=== PATIENT | female | born 1975 | race Caucasian/White ===

== ENCOUNTER 2018-09-25 18:05 | Emergency (ER) | payer OTHER, SELFPAY ==
--- NOTE | 2018-09-25 18:15 | ED.FEMALEGU ---
HPI - Female Genitourinary <Merle Sweeney PA-C - Last Filed: 09/25/18 21:42> General Chief complaint: Fever Stated complaint: HAD SURGERY TWO WEEKS AGO HAS FEVER PAIN Time Seen by Provider: 09/25/18 18:08 Source: patient Mode of arrival: ambulatory Limitations: no limitations History of Present Illness HPI Narrative: This 43-year-old female who had a laparoscopic vaginal hysterectomy 2 weeks ago for adenomyosis comes in due to worse abdominal/pelvic pain over the last couple of days as well as feeling fatigued. She states that on Monday, she started feeling some generalized weakness and fatigue and having chills as well as some nausea without vomiting. She has been able to keep up on her p.o. intake. She states that since surgery, she feels pain that is deep, behind her bladder, worse if her bladder or bowels are full. She states that now, that pain has become more excruciating. She states that today, she developed a fever up to 100.7 at home and her surgeon advised her to ED if fever greater than 100.5. She states the pain has not worsened in the last day or 2 but is worse in the last few days and was the week prior. She denies any dysuria or hematuria. She denies any diarrhea or blood in the stools. She denies any known recent exposures upper respiratory symptoms such as cough or cold symptoms, chest pain or dyspnea. She denies any new rash or other new complaints. she states that the surgeon thought she clipped her left ureter during surgery however she had an ultrasound done on Monday and it was functioning normally. Related Data Allergies Allergy/AdvReac Type Severity Reaction Status Date / Time Penicillins Allergy Verified 09/25/18 18:18 Review of Systems <Merle Sweeney PA-C - Last Filed: 09/25/18 21:42> Review of Systems ROS Unobtainable: All systems reviewed & are unremarkable except as noted in HPI and below PFSH <Merle Sweeney PA-C - Last Filed: 09/25/18 21:42> Medical History (Updated 09/25/18 @ 20:52 by Merle Sweeney PA-C) Adenomyosis (Resolved) History of ovarian cyst (Resolved) Surgical History (Updated 09/25/18 @ 18:36 by Merle Sweeney PA-C) S/P section (Resolved) S/P laparoscopic hysterectomy (Resolved) Social History (Updated 09/25/18 @ 18:36 by Merle Sweeney PA-C) Smoking Status: Never smoker Social History (Updated 09/25/18 @ 18:36 by Merle Sweeney PA-C) Smoking Status: Never smoker Exam <Merle Sweeney PA-C - Last Filed: 09/25/18 21:42> Narrative Exam Narrative: GENERAL APPEARANCE: Patient sitting comfortably, in no distress. HEENT: PERRL, EOMI, no scleral icterus, normal oropharynx NECK: Supple LUNGS: Clear to auscultation bilaterally. HEART: Rate and rhythm regular, normal S1 and S2, no S3 or S4. ABDOMEN: Soft, nondistended, bowel sounds present x 4 quadrants, no masses palpable, no hepatosplenomegaly. moderate midline lower quadrant and right lower quadrant tenderness to palpation without guarding or rebound. no left lower quadrant tenderness, no CVAT EXTREMITIES: No edema, no cyanosis DERMATOLOGIC: No jaundice or exanthem NEUROLOGIC: Alert and oriented with normal speech and coordination Initial Vital Signs Initial Vital Signs: Vital Signs Temperature 98.7 F 09/25/18 18:18 Pulse Rate 102 H 09/25/18 18:18 Respiratory Rate 14 09/25/18 18:18 Blood Pressure 100/61 09/25/18 18:18 Pulse Oximetry 100 09/25/18 18:18 <Alessandro Wilks DO - Last Filed: 09/26/18 02:33> Initial Vital Signs Initial Vital Signs: Vital Signs Temperature 98.7 F 09/25/18 18:18 Pulse Rate 102 H 09/25/18 18:18 Respiratory Rate 14 09/25/18 18:18 Blood Pressure 100/61 09/25/18 18:18 Pulse Oximetry 100 09/25/18 18:18 Course <Merle Sweeney PA-C - Last Filed: 09/25/18 21:42> Additional Information: Dr. Yung phoned regarding findings of vaginal cuff abscess. I have spoken with Dr. Rivera from [facility] who performed her surgery and would like to have patient transferred to [facility]. Patient is stable and her is here with her. She is able to go by private vehicle. I have spoken with Dr. Song Norris from [facility] ED who accepts patient for transfer and has coordinated with Dr. Rivera. Orders Ordered: ED Orders 09/25/18 18:30 CT abdomen pelvis w con Stat 09/25/18 18:40 Complete Blood Count AUTO DIFF Stat Comprehensive Metabolic Panel Stat Lactate (Lactic Acid) Stat Lipase Stat Partial Thromboplastin Time Stat Prothrombin Time INR Stat 09/25/18 19:00 Urine Microscopic Stat Discontinued Medications Sodium Chloride (Normal Saline 0.9%) 1,000 mls @ 1,000 mls/hr IV BOLUS ONE Stop: 09/25/18 19:29 Last Infusion: 09/25/18 20:28 Dose: 0 mls/hr Infusion: 09/25/18 19:42 Dose: 1,000 mls/hr Infusion: 09/25/18 19:26 Dose: 0 mls/hr Admin: 09/25/18 18:56 Dose: 1,000 mls/hr Ketorolac Tromethamine (Toradol) 30 mg IV NOW ONE Stop: 09/25/18 18:31 Last Admin: 09/25/18 18:56 Dose: 30 mg Oxycodone/Acetaminophen (Percocet 5/325) 1 tab PO NOW ONE Stop: 09/25/18 19:54 Last Admin: 09/25/18 19:56 Dose: 1 tab Vital Signs - 8 hr 09/25/18 19:47 09/25/18 20:30 Pulse Rate 80 80 Respiratory Rate 15 Blood Pressure [Left Arm] 100/54 L 113/54 L Pulse Oximetry 100 100 <Alessandro Wilks DO - Last Filed: 09/26/18 02:33> Orders Ordered: ED Orders 09/25/18 18:30 CT abdomen pelvis w con Stat 09/25/18 18:40 Complete Blood Count AUTO DIFF Stat Comprehensive Metabolic Panel Stat Lactate (Lactic Acid) Stat Lipase Stat Partial Thromboplastin Time Stat Prothrombin Time INR Stat 09/25/18 19:00 Urine Microscopic Stat Discontinued Medications Sodium Chloride (Normal Saline 0.9%) 1,000 mls @ 1,000 mls/hr IV BOLUS ONE Stop: 09/25/18 19:29 Last Infusion: 09/25/18 20:28 Dose: 0 mls/hr Infusion: 09/25/18 19:42 Dose: 1,000 mls/hr Infusion: 09/25/18 19:26 Dose: 0 mls/hr Admin: 09/25/18 18:56 Dose: 1,000 mls/hr Ketorolac Tromethamine (Toradol) 30 mg IV NOW ONE Stop: 09/25/18 18:31 Last Admin: 09/25/18 18:56 Dose: 30 mg Oxycodone/Acetaminophen (Percocet 5/325) 1 tab PO NOW ONE Stop: 09/25/18 19:54 Last Admin: 09/25/18 19:56 Dose: 1 tab Vital Signs - 8 hr 09/25/18 19:47 09/25/18 20:30 Pulse Rate 80 80 Respiratory Rate 15 Blood Pressure [Left Arm] 100/54 L 113/54 L Pulse Oximetry 100 100 MDM - Female Genitourinary <Merle Sweeney PA-C - Last Filed: 09/25/18 21:42> Lab Data Attestation: I reviewed the patient's lab results. Result diagrams: 09/25/18 18:40 09/25/18 18:40 Lab Results 09/25/18 09/25/18 09/25/18 Range/Units 14:25 18:40 18:40 WBC 8.6 (4.5-11.0) X10^3/uL RBC 3.63 L (4.0-5.2) X10^6/uL Hgb 10.0 L (12.0-16.0) g/dL Hct 30.0 L (36-46) % MCV 82.6 (80-100) fL MCH 27.5 (26-34) PG MCHC 33.2 (30-36) % RDW 14.1 (11.6-14.8) % Plt Count 80 L (150-400) X10^3/uL Neut % (Auto) 82.0 H (50-75) % Lymph % (Auto) 11.2 L (25-40) % [place] % (Auto) 5.5 (3-14) % Eos % (Auto) 1.0 L (2-4) % Baso % (Auto) 0.3 (0-2) % Neut # (Auto) 7100 H (0228-9413) /uL Lymph # (Auto) 1000 L (2067-8136) /uL [place] # (Auto) 500 (0-900) /uL Eos # (Auto) 100 (0-450) /uL Baso # (Auto) 0 (0-100) /uL PT (10.1-12.7) SECONDS INR (0.9-1.3) APTT (26.4-36.2) SECONDS Sodium (137-145) mmol/L Potassium (3.4-5.1) mmol/L Chloride (98-107) mmol/L Carbon Dioxide (22-32) mmol/L BUN (7-17) mg/dL Creatinine (0.52-1.04) mg/dL Estimated GFR (>60) mL/min BUN/Creatinine Ratio (6-22) Glucose (70-100) mg/dL Lactate 0.6 L (0.7-2.1) mmol/L Calcium (8.4-10.2) mg/dL Total Bilirubin (0.2-1.3) mg/dL AST (14-36) IU/L ALT (9-52) IU/L Alkaline Phosphatase (38-126) U/L Total Protein (6.3-8.2) g/dL Albumin (3.5-5.0) g/dL Globulin (1.7-4.1) g/dL Albumin/Globulin Ratio (1.0-2.8) Lipase (23-300) U/L Urine RBC (0-5/HPF) Urine WBC (0-5/HPF) Ur Squamous Epith Cells (0-5/HPF) Urine Bacteria (None) Ur Culture Indicated? Micro UA Comment Influenza A & B (PCR) Negative (Negative) 09/25/18 09/25/18 09/25/18 Range/Units 18:40 18:40 19:00 WBC (4.5-11.0) X10^3/uL RBC (4.0-5.2) X10^6/uL Hgb (12.0-16.0) g/dL Hct (36-46) % MCV (80-100) fL MCH (26-34) PG MCHC (30-36) % RDW (11.6-14.8) % Plt Count (150-400) X10^3/uL Neut % (Auto) (50-75) % Lymph % (Auto) (25-40) % [place] % (Auto) (3-14) % Eos % (Auto) (2-4) % Baso % (Auto) (0-2) % Neut # (Auto) (8561-1362) /uL Lymph # (Auto) (5949-3279) /uL [place] # (Auto) (0-900) /uL Eos # (Auto) (0-450) /uL Baso # (Auto) (0-100) /uL PT 11.7 (10.1-12.7) SECONDS INR 1.0 (0.9-1.3) APTT 17 L (26.4-36.2) SECONDS Sodium 135 L (137-145) mmol/L Potassium 3.8 (3.4-5.1) mmol/L Chloride 100 (98-107) mmol/L Carbon Dioxide 23 (22-32) mmol/L BUN 9 (7-17) mg/dL Creatinine 0.70 (0.52-1.04) mg/dL Estimated GFR > 60.0 (>60) mL/min BUN/Creatinine Ratio 12.9 (6-22) Glucose 120 H (70-100) mg/dL Lactate (0.7-2.1) mmol/L Calcium 9.1 (8.4-10.2) mg/dL Total Bilirubin 0.8 (0.2-1.3) mg/dL AST 15 (14-36) IU/L ALT 9 (9-52) IU/L Alkaline Phosphatase 68 (38-126) U/L Total Protein 7.6 (6.3-8.2) g/dL Albumin 4.4 (3.5-5.0) g/dL Globulin 3.2 (1.7-4.1) g/dL Albumin/Globulin Ratio 1.4 (1.0-2.8) Lipase 80 (23-300) U/L Urine RBC 1-5/hpf (0-5/HPF) Urine WBC 5-10/hpf H (0-5/HPF) Ur Squamous Epith Cells 10-30 /hpf H (0-5/HPF) Urine Bacteria Few (2-10) H (None) Ur Culture Indicated? Cult not indicated Micro UA Comment Epi contamination Influenza A & B (PCR) (Negative) Point of Care Testing Test Results Negative Urine Dip Bedside Urine Glucose Negative Bedside Urine Bilirubin - Negative Bedside Urine Ketone - Negative Urine Specific [place] 1.010 Bedside Urine Occult Blood - Negative Bedside Urine pH 6.0 Bedside Urine Protein - Negative Bedside Urine Urobilinogen - Negative Bedside Urine Nitrite - Negative Bedside Urine Leukocytes + [address] scan - abdomen: Radiologist's impression: [address] [address] [address] Scan Report Signed Patient: Harley Corbin LMR#: [id number] : 1975Acct:[id number] Age/Sex: 43 / FDate of Service: 09/25/18 Loc: ED Accession Number: [id number] Procedure: CT abdomen pelvis w con Ordering Provider: Merle Sweeney P.A-C PROCEDURE: CT ABDOMEN PELVIS W CON INDICATIONS: midline LQ and R. LQ pain, fever. 2 weeks s/p laparoscopic hysterectomy. TECHNIQUE: After the administration of oral and intravenous contrast, 5 mm thick sections acquired from the diaphragms to the symphysis. 5 mm thick coronal and sagittal reformats were performed. For radiation dose reduction, the following was used: automated exposure control, adjustment of mA and/or kV according to patient size. COMPARISON: Outside Film, CT, CT IVP, 09/11/2018, 7:08. FINDINGS: Image quality: Excellent. ABDOMEN: Lung bases: Lung bases are clear. Heart size is normal. Solid organs: Within the lateral right hepatic lobe in segment 5, there is a peripheral focus of mild hypervascular enhancement measuring up to 1.4 cm. Mild focal fatty infiltration is noted along the gallbladder fossa. The gallbladder is nondistended. No calcified gallstone. Biliary system is non-dilated. Pancreas enhances normally. Spleen is normal in size and enhancement. No adrenal nodules. Kidneys are normal in size and enhancement, without hydronephrosis. Peritoneum and bowel: There is a loculated thickwalled fluid collection contiguous with the vaginal cuff measuring approximately 3.2 x 2.0 x 3.3 cm. There is associated inflammatory fat stranding as well as segmental wall thickening of the adjacent sigmoid colon and small bowel loops. There is also adjacent hypervascular enhancement of the vaginal cuff. No evidence of bowel obstruction. No intraperitoneal free fluid elsewhere. No free air. Nodes and vessels: No retroperitoneal or mesenteric adenopathy. Aorta and inferior vena cava are normal in caliber. Miscellaneous: No ventral hernias. PELVIS: Genitourinary: Bladder wall thickness is normal. As noted above, there is a loculated fluid collection at the vaginal cuff with associated inflammatory changes compatible with an abscess. There is a cystic thin-walled structure in the left adnexa measuring approximately 3.0 x 2.5 cm which may represent an ovarian or paraovarian cyst versus a small abscess collection. Miscellaneous: No inguinal hernias or adenopathy. Bones: No suspicious bony lesions. No vertebral body compression fractures. IMPRESSION: 1. Loculated thickwalled fluid collection contiguous with the vaginal cuff associated with inflammatory changes consistent with an abscess. There is associated wall thickening of the adjacent sigmoid colon, small bowel loops, and vaginal cuff. Patient may be at risk for development of an enterovaginal fistula. Findings discussed with Brandi Sweeney PA-C on 09/25/18 at 8 PM. 2. Smaller thin-walled ovoid fluid collection in the left adnexal region may represent an ovarian or paraovarian cyst , and less likely a 2nd abscess. 3. Small hypervascular focus within the peripheral right hepatic lobe is nonspecific and may represent a small focus of vascular shunting, flash filling hemangioma, or adenoma. A malignancy is less likely given the absence of washout in this region on the recent CT IVP. Dictated by: Trip Yung M.D. on 09/25/2018 at 19:52 Approved by: Trip Yung M.D. on 09/25/2018 at 20:06 <Alessandro Wilks DO - Last Filed: 09/26/18 02:33> Lab Data Lab Results 09/25/18 09/25/18 09/25/18 Range/Units 14:25 18:40 18:40 WBC 8.6 (4.5-11.0) X10^3/uL RBC 3.63 L (4.0-5.2) X10^6/uL Hgb 10.0 L (12.0-16.0) g/dL Hct 30.0 L (36-46) % MCV 82.6 (80-100) fL MCH 27.5 (26-34) PG MCHC 33.2 (30-36) % RDW 14.1 (11.6-14.8) % Plt Count 80 L (150-400) X10^3/uL Neut % (Auto) 82.0 H (50-75) % Lymph % (Auto) 11.2 L (25-40) % [place] % (Auto) 5.5 (3-14) % Eos % (Auto) 1.0 L (2-4) % Baso % (Auto) 0.3 (0-2) % Neut # (Auto) 7100 H (1943-3012) /uL Lymph # (Auto) 1000 L (4790-4854) /uL [place] # (Auto) 500 (0-900) /uL Eos # (Auto) 100 (0-450) /uL Baso # (Auto) 0 (0-100) /uL PT (10.1-12.7) SECONDS INR (0.9-1.3) APTT (26.4-36.2) SECONDS Sodium (137-145) mmol/L Potassium (3.4-5.1) mmol/L Chloride (98-107) mmol/L Carbon Dioxide (22-32) mmol/L BUN (7-17) mg/dL Creatinine (0.52-1.04) mg/dL Estimated GFR (>60) mL/min BUN/Creatinine Ratio (6-22) Glucose (70-100) mg/dL Lactate 0.6 L (0.7-2.1) mmol/L Calcium (8.4-10.2) mg/dL Total Bilirubin (0.2-1.3) mg/dL AST (14-36) IU/L ALT (9-52) IU/L Alkaline Phosphatase (38-126) U/L Total Protein (6.3-8.2) g/dL Albumin (3.5-5.0) g/dL Globulin (1.7-4.1) g/dL Albumin/Globulin Ratio (1.0-2.8) Lipase (23-300) U/L Urine RBC (0-5/HPF) Urine WBC (0-5/HPF) Ur Squamous Epith Cells (0-5/HPF) Urine Bacteria (None) Ur Culture Indicated? Micro UA Comment Influenza A & B (PCR) Negative (Negative) 09/25/18 09/25/18 09/25/18 Range/Units 18:40 18:40 19:00 WBC (4.5-11.0) X10^3/uL RBC (4.0-5.2) X10^6/uL Hgb (12.0-16.0) g/dL Hct (36-46) % MCV (80-100) fL MCH (26-34) PG MCHC (30-36) % RDW (11.6-14.8) % Plt Count (150-400) X10^3/uL Neut % (Auto) (50-75) % Lymph % (Auto) (25-40) % [place] % (Auto) (3-14) % Eos % (Auto) (2-4) % Baso % (Auto) (0-2) % Neut # (Auto) (0398-0218) /uL Lymph # (Auto) (7271-5145) /uL [place] # (Auto) (0-900) /uL Eos # (Auto) (0-450) /uL Baso # (Auto) (0-100) /uL PT 11.7 (10.1-12.7) SECONDS INR 1.0 (0.9-1.3) APTT 17 L (26.4-36.2) SECONDS Sodium 135 L (137-145) mmol/L Potassium 3.8 (3.4-5.1) mmol/L Chloride 100 (98-107) mmol/L Carbon Dioxide 23 (22-32) mmol/L BUN 9 (7-17) mg/dL Creatinine 0.70 (0.52-1.04) mg/dL Estimated GFR > 60.0 (>60) mL/min BUN/Creatinine Ratio 12.9 (6-22) Glucose 120 H (70-100) mg/dL Lactate (0.7-2.1) mmol/L Calcium 9.1 (8.4-10.2) mg/dL Total Bilirubin 0.8 (0.2-1.3) mg/dL AST 15 (14-36) IU/L ALT 9 (9-52) IU/L Alkaline Phosphatase 68 (38-126) U/L Total Protein 7.6 (6.3-8.2) g/dL Albumin 4.4 (3.5-5.0) g/dL Globulin 3.2 (1.7-4.1) g/dL Albumin/Globulin Ratio 1.4 (1.0-2.8) Lipase 80 (23-300) U/L Urine RBC 1-5/hpf (0-5/HPF) Urine WBC 5-10/hpf H (0-5/HPF) Ur Squamous Epith Cells 10-30 /hpf H (0-5/HPF) Urine Bacteria Few (2-10) H (None) Ur Culture Indicated? Cult not indicated Micro UA Comment Epi contamination Influenza A & B (PCR) (Negative) Point of Care Testing Test Results Negative Urine Dip Bedside Urine Glucose Negative Bedside Urine Bilirubin - Negative Bedside Urine Ketone - Negative Urine Specific [place] 1.010 Bedside Urine Occult Blood - Negative Bedside Urine pH 6.0 Bedside Urine Protein - Negative Bedside Urine Urobilinogen - Negative Bedside Urine Nitrite - Negative Bedside Urine Leukocytes + 70 Esterase Discharge Plan Departure Patient Disposition: [facility] Clinical Impression: Postoperative abscess Discharge Date/Time: 09/25/18 20:56 Interventions: ED Discharge Assessment Last Done: 09/25/18 20:56 Activity Restrictions/Additional Instructions: Please go directly to [facility] Emergency Room as Dr. Wang wants to take care of you in the hospital there. Dr. Norris is the attending physician there this evening and is aware that you are on your way. Please give them your labs and CD of your CT scan when you arrive. Referrals: Naomi Broussard MD [Non-Staff] - <Alessandro Wilks DO - Last Filed: 09/26/18 02:33> Cosign ED Attending Ciera Attestation: I was immediately available in the department for consultation. Documentation has been reviewed. I agree with assessment and plan.
[2018-09-25 18:18] VITALS: BP 100/61; PULSE 102; RESP 14; TEMP 37.1; O2SAT 100; BMI 21.1
--- NOTE | 2018-09-25 18:30 | DI.CT.S_ITS ---
PROCEDURE: CT ABDOMEN PELVIS W CON INDICATIONS: midline LQ and R. LQ pain, fever. 2 weeks s/p laparoscopic hysterectomy. TECHNIQUE: After the administration of oral and intravenous contrast, 5 mm thick sections acquired from the diaphragms to the symphysis. 5 mm thick coronal and sagittal reformats were performed. For radiation dose reduction, the following was used: automated exposure control, adjustment of mA and/or kV according to patient size. COMPARISON: Outside Film, CT, CT IVP, 09/11/2018, 7:08. FINDINGS: Image quality: Excellent. ABDOMEN: Lung bases: Lung bases are clear. Heart size is normal. Solid organs: Within the lateral right hepatic lobe in segment 5, there is a peripheral focus of mild hypervascular enhancement measuring up to 1.4 cm. Mild focal fatty infiltration is noted along the gallbladder fossa. The gallbladder is nondistended. No calcified gallstone. Biliary system is non-dilated. Pancreas enhances normally. Spleen is normal in size and enhancement. No adrenal nodules. Kidneys are normal in size and enhancement, without hydronephrosis. Peritoneum and bowel: There is a loculated thickwalled fluid collection contiguous with the vaginal cuff measuring approximately 3.2 x 2.0 x 3.3 cm. There is associated inflammatory fat stranding as well as segmental wall thickening of the adjacent sigmoid colon and small bowel loops. There is also adjacent hypervascular enhancement of the vaginal cuff. No evidence of bowel obstruction. No intraperitoneal free fluid elsewhere. No free air. Nodes and vessels: No retroperitoneal or mesenteric adenopathy. Aorta and inferior vena cava are normal in caliber. Miscellaneous: No ventral hernias. PELVIS: Genitourinary: Bladder wall thickness is normal. As noted above, there is a loculated fluid collection at the vaginal cuff with associated inflammatory changes compatible with an abscess. There is a cystic thin-walled structure in the left adnexa measuring approximately 3.0 x 2.5 cm which may represent an ovarian or paraovarian cyst versus a small abscess collection. Miscellaneous: No inguinal hernias or adenopathy. Bones: No suspicious bony lesions. No vertebral body compression fractures. IMPRESSION: 1. Loculated thickwalled fluid collection contiguous with the vaginal cuff associated with inflammatory changes consistent with an abscess. There is associated wall thickening of the adjacent sigmoid colon, small bowel loops, and vaginal cuff. Patient may be at risk for development of an enterovaginal fistula. Findings discussed with Brandi Sweeney PA-C on 09/25/18 at 8 PM. 2. Smaller thin-walled ovoid fluid collection in the left adnexal region may represent an ovarian or paraovarian cyst , and less likely a 2nd abscess. 3. Small hypervascular focus within the peripheral right hepatic lobe is nonspecific and may represent a small focus of vascular shunting, flash filling hemangioma, or adenoma. A malignancy is less likely given the absence of washout in this region on the recent CT IVP. Dictated by: Trip Yung M.D. on 09/25/2018 at 19:52 Approved by: Trip Yung M.D. on 09/25/2018 at 20:06
[2018-09-25] MEDS: KETOROLAC 60 MG/2 ML VIAL 30 MG IV (18:56)
[2018-09-25] MEDS: SODIUM CHLORIDE 0.9% 1,000 ML 1000 ML IV (18:56)
[2018-09-25 19:01] LABS: Prothrombin Time 11.7 SECONDS (10.1-12.7)
[2018-09-25 19:04] LABS: PTT Partial Thromboplastin Tim 17 SECONDS (26.4-36.2)
[2018-09-25 19:05] LABS: Lactate (Lactic Acid) 0.6 mmol/L (0.7-2.1)
[2018-09-25 19:06] LABS: Alanine Aminotransferase 9 IU/L (9-52); Albumin 4.4 g/dL (3.5-5.0); Albumin Globulin Ratio 1.4 (1.0-2.8); Alkaline Phosphatase 68 U/L (38-126); Aspartate Aminotransferase 15 IU/L (14-36); BUN Creatinine Ratio 12.9 (6-22); Bilirubin Total 0.8 mg/dL (0.2-1.3); Blood Urea Nitrogen 9 mg/dL (7-17); Calcium 9.1 mg/dL (8.4-10.2); Carbon Dioxide 23 mmol/L (22-32); Chloride 100 mmol/L (98-107); Estimated Glomerular Filt Rate > 60.0 mL/min (>60); Globulin 3.2 g/dL (1.7-4.1); Glucose 120 mg/dL (70-100); HEMOLYSIS < 15 (0-50); Lipase 80 U/L (23-300); Potassium 3.8 mmol/L (3.4-5.1); Sodium 135 mmol/L (137-145); Total Protein 7.6 g/dL (6.3-8.2)
[2018-09-25 19:07] LABS: Add Manual Diff / Slide Review NO; Basophils Absolute Auto 0 /uL (0-100); Basophils Percent Auto 0.3 % (0-2); Eosinophils Absolute Auto 100 /uL (0-450); Lymphocytes Absolute Auto 1000 /uL (1100-4500); Lymphocytes Percent Auto 11.2 % (25-40); Mean Corpuscular HGB Conc 33.2 % (30-36); Mean Corpuscular Hemoglobin 27.5 PG (26-34); Mean Corpuscular Volume 82.6 fL (80-100); Monocytes Absolute Auto 500 /uL (0-900); Monocytes Percent Auto 5.5 % (3-14); Neutrophils Absolute Auto 7100 /uL (1500-7000); Platelet Count 80 X10^3/uL (150-400); Red Blood Cell Count 3.63 X10^6/uL (4.0-5.2); Red Cell Distribution Width 14.1 % (11.6-14.8); White Blood Cell Count 8.6 X10^3/uL (4.5-11.0)
[2018-09-25 19:10] LABS: Influenza A and B by PCR Rapid Negative (Negative)
[2018-09-25 19:47] VITALS: BP 100/54; PULSE 80; O2SAT 100
[2018-09-25 19:50] LABS: Bacteria Urine Few (2-10); Culture Indicated Urine Cult Not Indicated; RBC Urine 1-5/HPF (0-5/HPF); Squamous Epithelial Cell Urine 10-30 /HPF (0-5/HPF); Urine Comments EPI CONTAMINATION; WBC Urine 5-10/HPF (0-5/HPF)
[2018-09-25] MEDS: OXYCODONE/ACETAMINOPHEN 5/325 TABLET 1 TAB PO (19:56)
[2018-09-25 20:30] VITALS: BP 113/54; PULSE 80; RESP 15; O2SAT 100
== END 2018-09-25 20:56 | disposition short-term general hospital (02) ==
PROVIDERS: Emergency Provider Internal Medicine
DX: T81.49XA Infection following a procedure, other surgical site, initial encounter (principal); R53.1 Weakness
CPT/HCPCS: 36591; 74177; 80053; 81003; 81015; 81025; 83605; 83690; 85025; 85610; 85730; 87400; 96361; 96374; 99283; 99284; J1885

== ENCOUNTER 2018-10-03 14:02 | Emergency (ER) | payer OTHER, SELFPAY ==
[2018-10-03 14:07] VITALS: BP 118/61; PULSE 112; RESP 14; TEMP 37.7; O2SAT 99; BMI 21.1
[2018-10-03 17:21] LABS: Add Manual Diff / Slide Review NO; Basophils Absolute Auto 0 /uL (0-100); Basophils Percent Auto 0.7 % (0-2); Eosinophils Absolute Auto 100 /uL (0-450); Eosinophils Percent Auto 2.4 % (2-4); Hemoglobin 12.2 g/dL (12.0-16.0); Lymphocytes Absolute Auto 700 /uL (1100-4500); Lymphocytes Percent Auto 12.6 % (25-40); Mean Corpuscular Volume 81.8 fL (80-100); Monocytes Absolute Auto 600 /uL (0-900); Neutrophils Absolute Auto 4300 /uL (1500-7000); Neutrophils Percent Auto 74.3 % (50-75); Platelet Count 180 X10^3/uL (150-400); Red Blood Cell Count 4.52 X10^6/uL (4.0-5.2); Red Cell Distribution Width 14.4 % (11.6-14.8); White Blood Cell Count 5.8 X10^3/uL (4.5-11.0)
[2018-10-03] MEDS: SODIUM CHLORIDE 0.9% 1,000 ML 1000 ML IV (17:22)
[2018-10-03] MEDS: ONDANSETRON 4 MG/2 ML INJ IV (17:25)
--- NOTE | 2018-10-03 17:31 | DI.CT.S_ITS ---
PROCEDURE: CT ABDOMEN PELVIS W CON INDICATIONS: recent post op abscess. fever. pain TECHNIQUE: After the administration of intravenous contrast, 5 mm thick sections acquired from the diaphragm to the symphysis. 5 mm coronal and sagittal reformats were acquired. For radiation dose reduction, the following was used: automated exposure control, adjustment of mA and/or kV according to patient size. COMPARISON: [facility], CT, CT ABDOMEN PELVIS W CON, 09/25/2018, 19:19. FINDINGS: Image quality: Excellent. ABDOMEN: Lung bases: Lung bases are clear. Heart size is normal. Solid organs: Liver is normal in size and enhancement. Gallbladder is contracted. Biliary system is non dilated. Pancreas enhances normally. Spleen is normal in size and enhancement. No adrenal nodules. Kidneys demonstrate normal size and enhancement, without hydronephrosis. Peritoneum and bowel: Bowel loops demonstrate normal wall thickness and caliber. No free fluid or air. Nodes and vessels: No retroperitoneal or mesenteric adenopathy by size criteria. Aorta and inferior vena cava are normal in size. Miscellaneous: No ventral hernias. PELVIS: Genitourinary: Bladder wall thickness is normal. Previously described fluid collection adjacent to the vaginal cuff has decreased in size, currently measuring 25 mm. Miscellaneous: No inguinal hernias or adenopathy. Bones: No change in left T12 sclerotic focus measuring 12 mm. No vertebral body compression fractures. IMPRESSION: 1. Resolving fluid collection adjacent to the vaginal cuff. 2. Previously seen region of right hepatic lobe enhancement is not seen. 3. No change in left T12 sclerotic focus, which could be further assessed with bone scan, if clinically indicated. Dictated by: Rodger Saxena M.D. on 10/03/2018 at 18:21 Approved by: Rodger Saxena M.D. on 10/03/2018 at 18:25
[2018-10-03 17:34] LABS: Alanine Aminotransferase 30 IU/L (9-52); Albumin 4.8 g/dL (3.5-5.0); Albumin Globulin Ratio 1.3 (1.0-2.8); Alkaline Phosphatase 74 U/L (38-126); Aspartate Aminotransferase 21 IU/L (14-36); BUN Creatinine Ratio 12.2 (6-22); Bilirubin Total 0.3 mg/dL (0.2-1.3); Blood Urea Nitrogen 11 mg/dL (7-17); Calcium 9.5 mg/dL (8.4-10.2); Carbon Dioxide 24 mmol/L (22-32); Chloride 100 mmol/L (98-107); Estimated Glomerular Filt Rate > 60.0 mL/min (>60); Globulin 3.6 g/dL (1.7-4.1); Glucose 88 mg/dL (70-100); HEMOLYSIS < 15 (0-50); Lactate (Lactic Acid) 1.2 mmol/L (0.7-2.1); Potassium 3.9 mmol/L (3.4-5.1); Sodium 138 mmol/L (137-145); Total Protein 8.4 g/dL (6.3-8.2)
[2018-10-03] MEDS: KETOROLAC 60 MG/2 ML VIAL 30 MG IV (18:32)
[2018-10-03 19:00] VITALS: BP 122/83; PULSE 91; RESP 19; O2SAT 95
[2018-10-03 20:00] VITALS: BP 114/66; PULSE 79; O2SAT 97
--- NOTE | 2018-10-03 21:13 | ED.SKABFB ---
HPI - Skin/Abscess/Foreign Bdy <HERBERT Lord - Last Filed: 10/03/18 21:23> General Chief complaint: Skin/Abscess/Foreign Body Stated complaint: surgical abcess at surgical site Time Seen by Provider: 10/03/18 16:28 Source: patient and family Mode of arrival: ambulatory Limitations: no limitations History of Present Illness HPI narrative: The patient is a 43 year female who presents with her . She is a nonsmoker with history of very insistent a recent hysterectomy done by Dr. Stallings, which was done laparoscopically about 3 weeks ago. For she was found to have an abscess last week, was admitted to [facility]. They did a drainage of the abscess and she was admitted on IV antibiotics, including IV Flagyl and Rocephin. She was discharged a few days ago on Bactrim and p.o. Flagyl. She complains of low-grade temps up to 99.5 as well as generalized pain in her lower belly behind my bladder and states that this pain is consistent with her previous abscess. She was transferred to [facility] during her last stay here, but the patient did not go back to [facility] if she does not want to be admitted there. She denies any dysuria urgency C or frequency. She denies any abnormal vaginal discharge or bleeding. Related Data Home Medications Medication Instructions Recorded Confirmed docusate calcium [Stool Softener] 240 mg PO BID 10/03/18 10/03/18 ibuprofen 800 mg PO TID PRN 10/03/18 metronidazole 500 mg PO Q12H 10/03/18 10/03/18 olopatadine 1 drp EYE-BOTH BID 10/03/18 10/03/18 sulfamethoxazole-trimethoprim 1 tab PO BID 10/03/18 10/03/18 Allergies Allergy/AdvReac Type Severity Reaction Status Date / Time Penicillins Allergy Hives Verified 10/03/18 14:13 Review of Systems <HERBERT Lord - Last Filed: 10/03/18 21:23> Review of Systems GENERAL: See HPI HEENT: Denies sinus pain, ear pain, sore throat, difficulty swallowing, dizziness. RESPIRATORY: Denies dyspnea, cough, wheezing, hemoptysis, sputum. CARDIOVASCULAR: Denies chest pain, palpitations, orthopnea, edema, GASTROINTESTINAL: See HPI : Denies dysuria, frequency, incontinence, hematuria, urinary retention. MUSCULOSKELETAL: denies weakness, joint pain, or bony pain SKIN: Denies rash, skin lesions, or other NEUROLOGIC: Denies weakness, headache, numbness, change in speech, confusion, seizures, incoordination. PSYCHIATRIC: No concerning psychosocial issues. 12 point review of systems is negative except for those stated above PFSH <HERBERT Lord - Last Filed: 10/03/18 21:23> Medical History Adenomyosis (Resolved) History of ovarian cyst (Resolved) Surgical History S/P section (Resolved) S/P laparoscopic hysterectomy (Resolved) Social History (Updated 09/25/18 @ 18:36 by Merle Sweeney PA-C) Smoking Status: Never smoker Social History Smoking Status: Never smoker Exam <HERBERT Lord - Last Filed: 10/03/18 21:23> Narrative Exam Narrative: GENERAL: This is a well-nourished, well-developed patient, in no acute distress HEAD: Atraumatic. Normocephalic. No temporal or scalp tenderness. EYES: Pupils equal round and reactive. Extraocular motions intact. No scleral icterus. No injection or drainage. ENT: Nose without bleeding, purulent drainage or septal hematoma. Throat without erythema, tonsillar hypertrophy or exudate. Uvula midline. Airway patent. NECK: Trachea midline. No JVD or lymphadenopathy. Supple, nontender, no meningeal signs. CARDIOVASCULAR: Regular rate and rhythm without murmurs, gallops, or rubs. RESPIRATORY: Clear to auscultation. Breath sounds equal bilaterally. No wheezes, rales, or rhonchi. No cough. No increased respiratory effort. GASTROINTESTINAL: Abdomen soft, diffusely tender, nondistended. No hepato-splenomegaly, or palpable masses. No guarding. active bowel sounds all 4 quadrants EXTREMITIES: No clubbing, cyanosis, or edema. No joint tenderness, effusion, or edema noted. BACK: Nontender without deformity or crepitance. No flank tenderness. NEURO: AOx3. SKIN: No rash or erythema. Initial Vital Signs Initial Vital Signs: Vital Signs Temperature 99.9 F H 10/03/18 14:07 Pulse Rate 112 H 10/03/18 14:07 Respiratory Rate 14 10/03/18 14:07 Blood Pressure 118/61 10/03/18 14:07 Pulse Oximetry 99 10/03/18 14:07 <Odilon Breaux DO - Last Filed: 10/03/18 22:57> Initial Vital Signs Initial Vital Signs: Vital Signs Temperature 99.9 F H 10/03/18 14:07 Pulse Rate 112 H 10/03/18 14:07 Respiratory Rate 14 10/03/18 14:07 Blood Pressure 118/61 10/03/18 14:07 Pulse Oximetry 99 10/03/18 14:07 Course <ELLIE Lord-BC - Last Filed: 10/03/18 21:23> Orders Ordered: ED Orders 10/03/18 17:12 Complete Blood Count AUTO DIFF Stat Comprehensive Metabolic Panel Stat Lactate (Lactic Acid) Stat 10/03/18 17:31 CT abdomen pelvis w con Stat Discontinued Medications Sodium Chloride (Normal Saline 0.9%) 1,000 mls @ 1,000 mls/hr IV BOLUS ONE Stop: 10/03/18 17:48 Last Infusion: 10/03/18 18:29 Dose: 0 mls/hr Admin: 10/03/18 17:22 Dose: 1,000 mls/hr Ketorolac Tromethamine (Toradol) 30 mg IV NOW ONE Stop: 10/03/18 17:51 Last Admin: 10/03/18 18:32 Dose: 30 mg Ondansetron HCl (Zofran) 4 mg IV NOW ONE Stop: 10/03/18 17:08 Last Admin: 10/03/18 17:25 Dose: 4 mg Vital Signs - 8 hr 10/03/18 19:00 10/03/18 20:00 Pulse Rate 91 H 79 Respiratory Rate 19 Blood Pressure [Left Arm] 122/83 114/66 Pulse Oximetry 95 97 <Odilon Breaux DO - Last Filed: 10/03/18 22:57> Orders Ordered: ED Orders 10/03/18 17:12 Complete Blood Count AUTO DIFF Stat Comprehensive Metabolic Panel Stat Lactate (Lactic Acid) Stat 10/03/18 17:31 CT abdomen pelvis w con Stat Discontinued Medications Sodium Chloride (Normal Saline 0.9%) 1,000 mls @ 1,000 mls/hr IV BOLUS ONE Stop: 10/03/18 17:48 Last Infusion: 10/03/18 18:29 Dose: 0 mls/hr Admin: 10/03/18 17:22 Dose: 1,000 mls/hr Ketorolac Tromethamine (Toradol) 30 mg IV NOW ONE Stop: 10/03/18 17:51 Last Admin: 10/03/18 18:32 Dose: 30 mg Ondansetron HCl (Zofran) 4 mg IV NOW ONE Stop: 10/03/18 17:08 Last Admin: 10/03/18 17:25 Dose: 4 mg Vital Signs - 8 hr 10/03/18 19:00 10/03/18 20:00 Pulse Rate 91 H 79 Respiratory Rate 19 Blood Pressure [Left Arm] 122/83 114/66 Pulse Oximetry 95 97 MDM - Skin/Abscess/Foreign Bdy <GREGORY Lord - Last Filed: 10/03/18 21:23> Lab Data Attestation: I reviewed the patient's lab results. Result diagrams: 10/03/18 17:12 10/03/18 17:12 Lab Results 10/03/18 10/03/18 10/03/18 Range/Units 17:12 17:12 17:12 WBC 5.8 (4.5-11.0) X10^3/uL RBC 4.52 (4.0-5.2) X10^6/uL Hgb 12.2 (12.0-16.0) g/dL Hct 37.0 (36-46) % MCV 81.8 (80-100) fL MCH 27.0 (26-34) PG MCHC 33.0 (30-36) % RDW 14.4 (11.6-14.8) % Plt Count 180 (150-400) X10^3/uL Neut % (Auto) 74.3 (50-75) % Lymph % (Auto) 12.6 L (25-40) % [place] % (Auto) 10.0 (3-14) % Eos % (Auto) 2.4 (2-4) % Baso % (Auto) 0.7 (0-2) % Neut # (Auto) 4300 (8572-2637) /uL Lymph # (Auto) 700 L (3953-7734) /uL [place] # (Auto) 600 (0-900) /uL Eos # (Auto) 100 (0-450) /uL Baso # (Auto) 0 (0-100) /uL Sodium 138 (137-145) mmol/L Potassium 3.9 (3.4-5.1) mmol/L Chloride 100 (98-107) mmol/L Carbon Dioxide 24 (22-32) mmol/L BUN 11 (7-17) mg/dL Creatinine 0.90 (0.52-1.04) mg/dL Estimated GFR > 60.0 (>60) mL/min BUN/Creatinine Ratio 12.2 (6-22) Glucose 88 (70-100) mg/dL Lactate 1.2 (0.7-2.1) mmol/L Calcium 9.5 (8.4-10.2) mg/dL Total Bilirubin 0.3 (0.2-1.3) mg/dL AST 21 (14-36) IU/L ALT 30 (9-52) IU/L Alkaline Phosphatase 74 (38-126) U/L Total Protein 8.4 H (6.3-8.2) g/dL Albumin 4.8 (3.5-5.0) g/dL Globulin 3.6 (1.7-4.1) g/dL Albumin/Globulin Ratio 1.3 (1.0-2.8) Urine Dip Bedside Urine Glucose Negative Bedside Urine Bilirubin - Negative Bedside Urine Ketone - Negative Urine Specific [place] 1.015 Bedside Urine Occult Blood - Negative Bedside Urine pH 6 Bedside Urine Protein - Negative Bedside Urine Urobilinogen - Negative Bedside Urine Nitrite - Negative Bedside Urine Leukocytes - Negative Esterase Imaging Data CT scan - abdomen: Radiologist's impression: [address] [id number] [address] Scan Report Signed Patient: Harley Corbin LMR#: [id number] : 1975Acct:[id number] Age/Sex: 43 / FDate of Service: 10/03/18 Loc: ED Accession Number: [id number] Procedure: CT abdomen pelvis w con Ordering Provider: Isamar Laura SMASHER-BC PROCEDURE: CT ABDOMEN PELVIS W CON INDICATIONS: recent post op abscess. fever. pain TECHNIQUE: After the administration of intravenous contrast, 5 mm thick sections acquired from the diaphragm to the symphysis. 5 mm coronal and sagittal reformats were acquired. For radiation dose reduction, the following was used: automated exposure control, adjustment of mA and/or kV according to patient size. COMPARISON: [facility], CT, CT ABDOMEN PELVIS W CON, 09/25/2018, 19:19. FINDINGS: Image quality: Excellent. ABDOMEN: Lung bases: Lung bases are clear. Heart size is normal. Solid organs: Liver is normal in size and enhancement. Gallbladder is contracted. Biliary system is non dilated. Pancreas enhances normally. Spleen is normal in size and enhancement. No adrenal nodules. Kidneys demonstrate normal size and enhancement, without hydronephrosis. Peritoneum and bowel: Bowel loops demonstrate normal wall thickness and caliber. No free fluid or air. Nodes and vessels: No retroperitoneal or mesenteric adenopathy by size criteria. Aorta and inferior vena cava are normal in size. Miscellaneous: No ventral hernias. PELVIS: Genitourinary: Bladder wall thickness is normal. Previously described fluid collection adjacent to the vaginal cuff has decreased in size, currently measuring 25 mm. Miscellaneous: No inguinal hernias or adenopathy. Bones: No change in left T12 sclerotic focus measuring 12 mm. No vertebral body compression fractures. IMPRESSION: 1. Resolving fluid collection adjacent to the vaginal cuff. 2. Previously seen region of right hepatic lobe enhancement is not seen. 3. No change in left T12 sclerotic focus, which could be further assessed with bone scan, if clinically indicated. Dictated by: Rodger Saxena M.D. on 10/03/2018 at 18:21 Approved by: Rodger Saxena M.D. on 10/03/2018 at 18:25 MDM Narrative Medical decision making narrative: The patient is a 43-year-old female who presents with concern for worsening postoperative abscess. She has a normal lactate and not an elevated white blood cell count. She has a low-grade temp. Her abscess is smaller than it was with previous CT. I spoke with Dr. Wahl at length, who is on-call for the patient's surgeon. He attempted to contact the patient's surgeon but was not able to get hold of her. Given the patient's change in her CT, combined with her lack of white blood cell count and normal lactate, Dr. Wahl encouraged continuing the current plan of care. I discussed this at length with the patient, suggested [id number] medications as needed and able. Her temperature was 99.1? and she was normotensive and not tachycardic after a L of fluid. She was treated with Zofran and Toradol in the emergency department, but declined need for prescriptions upon discharge. I discussed at length return precautions that only keep down fluids, high fevers and encouraged follow up as an outpatient tomorrow as per Dr. Spencer's instructions. The patient has no questions or concerns upon discharge. <Odilon Breaux, DO - Last Filed: 10/03/18 22:57> Lab Data Lab Results 10/03/18 10/03/18 10/03/18 Range/Units 17:12 17:12 17:12 WBC 5.8 (4.5-11.0) X10^3/uL RBC 4.52 (4.0-5.2) X10^6/uL Hgb 12.2 (12.0-16.0) g/dL Hct 37.0 (36-46) % MCV 81.8 (80-100) fL MCH 27.0 (26-34) PG MCHC 33.0 (30-36) % RDW 14.4 (11.6-14.8) % Plt Count 180 (150-400) X10^3/uL Neut % (Auto) 74.3 (50-75) % Lymph % (Auto) 12.6 L (25-40) % [place] % (Auto) 10.0 (3-14) % Eos % (Auto) 2.4 (2-4) % Baso % (Auto) 0.7 (0-2) % Neut # (Auto) 4300 (5677-1111) /uL Lymph # (Auto) 700 L (8478-7772) /uL [place] # (Auto) 600 (0-900) /uL Eos # (Auto) 100 (0-450) /uL Baso # (Auto) 0 (0-100) /uL Sodium 138 (137-145) mmol/L Potassium 3.9 (3.4-5.1) mmol/L Chloride 100 (98-107) mmol/L Carbon Dioxide 24 (22-32) mmol/L BUN 11 (7-17) mg/dL Creatinine 0.90 (0.52-1.04) mg/dL Estimated GFR > 60.0 (>60) mL/min BUN/Creatinine Ratio 12.2 (6-22) Glucose 88 (70-100) mg/dL Lactate 1.2 (0.7-2.1) mmol/L Calcium 9.5 (8.4-10.2) mg/dL Total Bilirubin 0.3 (0.2-1.3) mg/dL AST 21 (14-36) IU/L ALT 30 (9-52) IU/L Alkaline Phosphatase 74 (38-126) U/L Total Protein 8.4 H (6.3-8.2) g/dL Albumin 4.8 (3.5-5.0) g/dL Globulin 3.6 (1.7-4.1) g/dL Albumin/Globulin Ratio 1.3 (1.0-2.8) Urine Dip Bedside Urine Glucose Negative Bedside Urine Bilirubin - Negative Bedside Urine Ketone - Negative Urine Specific [place] 1.015 Bedside Urine Occult Blood - Negative Bedside Urine pH 6 Bedside Urine Protein - Negative Bedside Urine Urobilinogen - Negative Bedside Urine Nitrite - Negative Bedside Urine Leukocytes - Negative Esterase Discharge Plan Departure Patient Disposition: Home Clinical Impression: Postoperative abscess Discharge Date/Time: 10/03/18 20:30 Interventions: ED Discharge Assessment Last Done: 10/03/18 20:30 Instructions: DI for Fever (Symptom) -- Adult Activity Restrictions/Additional Instructions: Your CT scan shows that her abscess is decreasing in size. I spoke with Dr. Wahl who states to continue your current treatment plan. Please follow up with the OBGYN office in the morning. I would suggest [id number] anti-inflammatories as well as Tylenol and Zofran as needed. Please come back to emergency department for any acute concerns. Prescriptions: No Action ibuprofen 800 mg tablet 800 mg PO TID PRN (Reason: pain) RF: 0 docusate calcium [Stool Softener] 240 mg capsule 240 mg PO BID RF: 0 metronidazole 250 mg tablet 500 mg PO Q12H RF: 0 sulfamethoxazole-trimethoprim 800-160 mg tablet 1 tab PO BID RF: 0 olopatadine 0.1 % drops 1 drp EYE-BOTH BID RF: 0 <Odilon Breaux DO - Last Filed: 10/03/18 22:57> Cosign ED Attending Ciera Attestation: I was available for consultation during this patient's emergency department encounter
--- NOTE | 2018-10-03 21:16 | ED_ITS ---
HPI - Skin/Abscess/Foreign Bdy <HERBERT Lord - Last Filed: 10/03/18 21:23> General Chief complaint: Skin/Abscess/Foreign Body Stated complaint: surgical abcess at surgical site Time Seen by Provider: 10/03/18 16:28 Source: patient and family Mode of arrival: ambulatory Limitations: no limitations History of Present Illness HPI narrative: The patient is a 43 year female who presents with her . She is a nonsmoker with history of very insistent a recent hysterectomy done by Dr. Stallings, which was done laparoscopically about 3 weeks ago. For she was found to have an abscess last week, was [facility] They did a drainage of the abscess and she was admitted on IV antibiotics, including IV Flagyl and Rocephin. She was discharged a few days ago on Bactrim and p.o. Flagyl. She complains of low-grade temps up to 99.5 as well as generalized pain in her lower belly behind my bladder and states that this pain is consistent with her previous abscess. She was transferred to [facility] during her last stay here, but the patient did not go back to [facility] if she does not want to be admitted there. She denies any dysuria urgency C or frequency. She denies any abnormal vaginal discharge or bleeding. Related Data Home Medications Medication Instructions Recorded Confirmed docusate calcium [Stool Softener] 240 mg PO BID 10/03/18 10/03/18 ibuprofen 800 mg PO TID PRN 10/03/18 metronidazole 500 mg PO Q12H 10/03/18 10/03/18 olopatadine 1 drp EYE-BOTH BID 10/03/18 10/03/18 sulfamethoxazole-trimethoprim 1 tab PO BID 10/03/18 10/03/18 Allergies Allergy/AdvReac Type Severity Reaction Status Date / Time Penicillins Allergy Hives Verified 10/03/18 14:13 Review of Systems <HERBERT Lord - Last Filed: 10/03/18 21:23> Review of Systems GENERAL: See HPI HEENT: Denies sinus pain, ear pain, sore throat, difficulty swallowing, dizziness. RESPIRATORY: Denies dyspnea, cough, wheezing, hemoptysis, sputum. CARDIOVASCULAR: Denies chest pain, palpitations, orthopnea, edema, GASTROINTESTINAL: See HPI : Denies dysuria, frequency, incontinence, hematuria, urinary retention. MUSCULOSKELETAL: denies weakness, joint pain, or bony pain SKIN: Denies rash, skin lesions, or other NEUROLOGIC: Denies weakness, headache, numbness, change in speech, confusion, seizures, incoordination. PSYCHIATRIC: No concerning psychosocial issues. 12 point review of systems is negative except for those stated above PFSH <HERBERT Lord - Last Filed: 10/03/18 21:23> Medical History Adenomyosis (Resolved) History of ovarian cyst (Resolved) Surgical History S/P section (Resolved) S/P laparoscopic hysterectomy (Resolved) Social History (Updated 09/25/18 @ 18:36 by Merle Sweeney PA-C) Smoking Status: Never smoker Social History Smoking Status: Never smoker Exam <HERBERT Lord - Last Filed: 10/03/18 21:23> Narrative Exam Narrative: GENERAL: This is a well-nourished, well-developed patient, in no acute distress HEAD: Atraumatic. Normocephalic. No temporal or scalp tenderness. EYES: Pupils equal round and reactive. Extraocular motions intact. No scleral icterus. No injection or drainage. ENT: Nose without bleeding, purulent drainage or septal hematoma. Throat without erythema, tonsillar hypertrophy or exudate. Uvula midline. Airway patent. NECK: Trachea midline. No JVD or lymphadenopathy. Supple, nontender, no meningeal signs. CARDIOVASCULAR: Regular rate and rhythm without murmurs, gallops, or rubs. RESPIRATORY: Clear to auscultation. Breath sounds equal bilaterally. No wheezes, rales, or rhonchi. No cough. No increased respiratory effort. GASTROINTESTINAL: Abdomen soft, diffusely tender, nondistended. No hepato- splenomegaly, or palpable masses. No guarding. active bowel sounds all 4 quadrants EXTREMITIES: No clubbing, cyanosis, or edema. No joint tenderness, effusion, or edema noted. BACK: Nontender without deformity or crepitance. No flank tenderness. NEURO: AOx3. SKIN: No rash or erythema. Initial Vital Signs Initial Vital Signs: Vital Signs Temperature 99.9 F H 10/03/18 14:07 Pulse Rate 112 H 10/03/18 14:07 Respiratory Rate 14 10/03/18 14:07 Blood Pressure 118/61 10/03/18 14:07 Pulse Oximetry 99 10/03/18 14:07 <Odilon Breaux DO - Last Filed: 10/03/18 22:57> Initial Vital Signs Initial Vital Signs: Vital Signs Temperature 99.9 F H 10/03/18 14:07 Pulse Rate 112 H 10/03/18 14:07 Respiratory Rate 14 10/03/18 14:07 Blood Pressure 118/61 10/03/18 14:07 Pulse Oximetry 99 10/03/18 14:07 Course <ELLIE Lord-BC - Last Filed: 10/03/18 21:23> Orders Ordered: ED Orders 10/03/18 17:12 Complete Blood Count AUTO DIFF Stat Comprehensive Metabolic Panel Stat Lactate (Lactic Acid) Stat 10/03/18 17:31 CT abdomen pelvis w con Stat Discontinued Medications Sodium Chloride (Normal Saline 0.9%) 1,000 mls @ 1,000 mls/hr IV BOLUS ONE Stop: 10/03/18 17:48 Last Infusion: 10/03/18 18:29 Dose: 0 mls/hr Admin: 10/03/18 17:22 Dose: 1,000 mls/hr Ketorolac Tromethamine (Toradol) 30 mg IV NOW ONE Stop: 10/03/18 17:51 Last Admin: 10/03/18 18:32 Dose: 30 mg Ondansetron HCl (Zofran) 4 mg IV NOW ONE Stop: 10/03/18 17:08 Last Admin: 10/03/18 17:25 Dose: 4 mg Vital Signs - 8 hr 10/03/18 19:00 10/03/18 20:00 Pulse Rate 91 H 79 Respiratory Rate 19 Blood Pressure [Left Arm] 122/83 114/66 Pulse Oximetry 95 97 <Odilon Breaux DO - Last Filed: 10/03/18 22:57> Orders Ordered: ED Orders 10/03/18 17:12 Complete Blood Count AUTO DIFF Stat Comprehensive Metabolic Panel Stat Lactate (Lactic Acid) Stat 10/03/18 17:31 CT abdomen pelvis w con Stat Discontinued Medications Sodium Chloride (Normal Saline 0.9%) 1,000 mls @ 1,000 mls/hr IV BOLUS ONE Stop: 10/03/18 17:48 Last Infusion: 10/03/18 18:29 Dose: 0 mls/hr Admin: 10/03/18 17:22 Dose: 1,000 mls/hr Ketorolac Tromethamine (Toradol) 30 mg IV NOW ONE Stop: 10/03/18 17:51 Last Admin: 10/03/18 18:32 Dose: 30 mg Ondansetron HCl (Zofran) 4 mg IV NOW ONE Stop: 10/03/18 17:08 Last Admin: 10/03/18 17:25 Dose: 4 mg Vital Signs - 8 hr 10/03/18 19:00 10/03/18 20:00 Pulse Rate 91 H 79 Respiratory Rate 19 Blood Pressure [Left Arm] 122/83 114/66 Pulse Oximetry 95 97 MDM - Skin/Abscess/Foreign Bdy <GREGORY Lord - Last Filed: 10/03/18 21:23> Lab Data Attestation: I reviewed the patient's lab results. Result diagrams: 10/03/18 17:12 10/03/18 17:12 Lab Results 10/03/18 10/03/18 10/03/18 Range/Units 17:12 17:12 17:12 WBC 5.8 (4.5-11.0) X10^3/uL RBC 4.52 (4.0-5.2) X10^6/uL Hgb 12.2 (12.0-16.0) g/dL Hct 37.0 (36-46) % MCV 81.8 (80-100) fL MCH 27.0 (26-34) PG MCHC 33.0 (30-36) % RDW 14.4 (11.6-14.8) % Plt Count 180 (150-400) X10^3/uL Neut % (Auto) 74.3 (50-75) % Lymph % (Auto) 12.6 L (25-40) % [place] % (Auto) 10.0 (3-14) % Eos % (Auto) 2.4 (2-4) % Baso % (Auto) 0.7 (0-2) % Neut # (Auto) 4300 (8044-8201) /uL Lymph # (Auto) 700 L (4082-7676) /uL [place] # (Auto) 600 (0-900) /uL Eos # (Auto) 100 (0-450) /uL Baso # (Auto) 0 (0-100) /uL Sodium 138 (137-145) mmol/L Potassium 3.9 (3.4-5.1) mmol/L Chloride 100 (98-107) mmol/L Carbon Dioxide 24 (22-32) mmol/L BUN 11 (7-17) mg/dL Creatinine 0.90 (0.52-1.04) mg/dL Estimated GFR > 60.0 (>60) mL/min BUN/Creatinine Ratio 12.2 (6-22) Glucose 88 (70-100) mg/dL Lactate 1.2 (0.7-2.1) mmol/L Calcium 9.5 (8.4-10.2) mg/dL Total Bilirubin 0.3 (0.2-1.3) mg/dL AST 21 (14-36) IU/L ALT 30 (9-52) IU/L Alkaline Phosphatase 74 (38-126) U/L Total Protein 8.4 H (6.3-8.2) g/dL Albumin 4.8 (3.5-5.0) g/dL Globulin 3.6 (1.7-4.1) g/dL Albumin/Globulin Ratio 1.3 (1.0-2.8) Urine Dip Bedside Urine Glucose Negative Bedside Urine Bilirubin - Negative Bedside Urine Ketone - Negative Urine Specific [place] 1.015 Bedside Urine Occult Blood - Negative Bedside Urine pH 6 Bedside Urine Protein - Negative Bedside Urine Urobilinogen - Negative Bedside Urine Nitrite - Negative Bedside Urine Leukocytes - Negative Esterase Imaging Data CT scan - abdomen: Radiologist's impression: [address] [address] [address] Scan Report Signed Patient: Harley Corbin LMR#: [id number] : 1975Acct:[id number] Age/Sex: 43 / FDate of Service: 10/03/18 Loc: ED Accession Number: [id number] Procedure: CT abdomen pelvis w con Ordering Provider: Isamar Laura DIRECTOR [employer]NAGEMENT-BC PROCEDURE: CT ABDOMEN PELVIS W CON INDICATIONS: recent post op abscess. fever. pain TECHNIQUE: After the administration of intravenous contrast, 5 mm thick sections acquired from the diaphragm to the symphysis. 5 mm coronal and sagittal reformats were acquired. For radiation dose reduction, the following was used: automated exposure control, adjustment of mA and/or kV according to patient size. COMPARISON: [facility], CT, CT ABDOMEN PELVIS W CON, 09/25/2018, 19:19. FINDINGS: Image quality: Excellent. ABDOMEN: Lung bases: Lung bases are clear. Heart size is normal. Solid organs: Liver is normal in size and enhancement. Gallbladder is contracted. Biliary system is non dilated. Pancreas enhances normally. Spleen is normal in size and enhancement. No adrenal nodules. Kidneys demonstrate normal size and enhancement, without hydronephrosis. Peritoneum and bowel: Bowel loops demonstrate normal wall thickness and caliber. No free fluid or air. Nodes and vessels: No retroperitoneal or mesenteric adenopathy by size criteria. Aorta and inferior vena cava are normal in size. Miscellaneous: No ventral hernias. PELVIS: Genitourinary: Bladder wall thickness is normal. Previously described fluid collection adjacent to the vaginal cuff has decreased in size, currently measuring 25 mm. Miscellaneous: No inguinal hernias or adenopathy. Bones: No change in left T12 sclerotic focus measuring 12 mm. No vertebral body compression fractures. IMPRESSION: 1. Resolving fluid collection adjacent to the vaginal cuff. 2. Previously seen region of right hepatic lobe enhancement is not seen. 3. No change in left T12 sclerotic focus, which could be further assessed with bone scan, if clinically indicated. Dictated by: Rodger Saxena M.D. on 10/03/2018 at 18:21 Approved by: Rodger Saxena M.D. on 10/03/2018 at 18:25 MDM Narrative Medical decision making narrative: The patient is a 43-year-old female who presents with concern for worsening postoperative abscess. She has a normal lactate and not an elevated white blood cell count. She has a low-grade temp. Her abscess is smaller than it was with previous CT. I spoke with Dr. Wahl at length, who is on-call for the patient's surgeon. He attempted to contact the patient's surgeon but was not able to get hold of her. Given the patient's change in her CT, combined with her lack of white blood cell count and normal lactate, Dr. Wahl encouraged continuing the current plan of care. I discussed this at length with the patient, suggested [id number] medications as needed and able. Her temperature was 99.1? and she was normotensive and not tachycardic after a L of fluid. She was treated with Zofran and Toradol in the emergency department, but declined need for prescriptions upon discharge. I discussed at length return precautions that only keep down fluids, high fevers and encouraged follow up as an outpatient tomorrow as per Dr. Spencer's instructions. The patient has no questions or concerns upon discharge. <Odilon Breaux, DO - Last Filed: 10/03/18 22:57> Lab Data Lab Results 10/03/18 10/03/18 10/03/18 Range/Units 17:12 17:12 17:12 WBC 5.8 (4.5-11.0) X10^3/uL RBC 4.52 (4.0-5.2) X10^6/uL Hgb 12.2 (12.0-16.0) g/dL Hct 37.0 (36-46) % MCV 81.8 (80-100) fL MCH 27.0 (26-34) PG MCHC 33.0 (30-36) % RDW 14.4 (11.6-14.8) % Plt Count 180 (150-400) X10^3/uL Neut % (Auto) 74.3 (50-75) % Lymph % (Auto) 12.6 L (25-40) % [place] % (Auto) 10.0 (3-14) % Eos % (Auto) 2.4 (2-4) % Baso % (Auto) 0.7 (0-2) % Neut # (Auto) 4300 (0359-0417) /uL Lymph # (Auto) 700 L (5867-9306) /uL [place] # (Auto) 600 (0-900) /uL Eos # (Auto) 100 (0-450) /uL Baso # (Auto) 0 (0-100) /uL Sodium 138 (137-145) mmol/L Potassium 3.9 (3.4-5.1) mmol/L Chloride 100 (98-107) mmol/L Carbon Dioxide 24 (22-32) mmol/L BUN 11 (7-17) mg/dL Creatinine 0.90 (0.52-1.04) mg/dL Estimated GFR > 60.0 (>60) mL/min BUN/Creatinine Ratio 12.2 (6-22) Glucose 88 (70-100) mg/dL Lactate 1.2 (0.7-2.1) mmol/L Calcium 9.5 (8.4-10.2) mg/dL Total Bilirubin 0.3 (0.2-1.3) mg/dL AST 21 (14-36) IU/L ALT 30 (9-52) IU/L Alkaline Phosphatase 74 (38-126) U/L Total Protein 8.4 H (6.3-8.2) g/dL Albumin 4.8 (3.5-5.0) g/dL Globulin 3.6 (1.7-4.1) g/dL Albumin/Globulin Ratio 1.3 (1.0-2.8) Urine Dip Bedside Urine Glucose Negative Bedside Urine Bilirubin - Negative Bedside Urine Ketone - Negative Urine Specific [place] 1.015 Bedside Urine Occult Blood - Negative Bedside Urine pH 6 Bedside Urine Protein - Negative Bedside Urine Urobilinogen - Negative Bedside Urine Nitrite - Negative Bedside Urine Leukocytes - Negative Esterase Discharge Plan Departure Patient Disposition: Home Clinical Impression: Postoperative abscess Discharge Date/Time: 10/03/18 20:30 Interventions: ED Discharge Assessment Last Done: 10/03/18 20:30 Instructions: DI for Fever (Symptom) -- Adult Activity Restrictions/Additional Instructions: Your CT scan shows that her abscess is decreasing in size. I spoke with Dr. Wahl who states to continue your current treatment plan. Please follow up with the OBGYN office in the morning. I would suggest [id number] anti- inflammatories as well as Tylenol and Zofran as needed. Please come back to emergency department for any acute concerns. Prescriptions: No Action ibuprofen 800 mg tablet 800 mg PO TID PRN (Reason: pain) RF: 0 docusate calcium [Stool Softener] 240 mg capsule 240 mg PO BID RF: 0 metronidazole 250 mg tablet 500 mg PO Q12H RF: 0 sulfamethoxazole-trimethoprim 800-160 mg tablet 1 tab PO BID RF: 0 olopatadine 0.1 % drops 1 drp EYE-BOTH BID RF: 0 <Odilon Breaux DO - Last Filed: 10/03/18 22:57> Cosign ED Attending Ciera Attestation: I was available for consultation during this patient's emergency department encounter
== END 2018-10-03 20:30 | disposition home or self-care (01) ==
PROVIDERS: Emergency Provider Nurse Practitioner Family
DX: T81.49XA Infection following a procedure, other surgical site, initial encounter (principal)
CPT/HCPCS: 36591; 74177; 80053; 81003; 83605; 85025; 96361; 96374; 96375; 99283; 99284; J1885; J2405; Q9967